=== PATIENT | male | born 1940 | race Caucasian/White ===

== ENCOUNTER 2018-04-18 08:57 | Inpatient (IN) | payer MEDICARE, OTHER ==
[~2018-04-18] VITALS: Ht 177.8 cm; Wt 84.8 kg
[~2018-04-18 08:57] MED LIST: COZAAR; CRESTOR; LEVSIN
[2018-04-18] MEDS ORDERED: FLOMAX0.4 MG PO (08:59)
[2018-04-18] MEDS ORDERED: LOPRESSOR25 PO (08:59)
[2018-04-18] MEDS ORDERED: NITROGLYCERIN0.4 MG SUBLING (09:00)
[2018-04-18] MEDS ORDERED: IMDUR 60 MG TAB60 M1 PO (09:00)
[2018-04-18 09:22] LABS: ABSOLUTE EOSINOPHILS 0.1 thou/uL (0.0-0.7); ABSOLUTE LYMPHOCYTES 2.7 thou/uL (0.8-5.3); ABSOLUTE MONOCYTES 0.6 thou/uL (0.0-1.2); ABSOLUTE NEUTROPHILS 5.7 thou/uL (1.6-8.1); BASOPHILS 0.4 %; EOSINOPHILS 1.2 %; HEMATOCRIT 36.4 % (42.0-52.0); HEMOGLOBIN 11.9 gm/dL (14.0-18.0); LYMPHOCYTES 29.3 %; MCH 31.2 pg (26.0-34.0); MCHC 32.8 g/dL (28.0-37.0); MONOCYTES 6.3 %; MPV 8.5 fl. (7.2-11.1); NUCLEATED RBCS 0 /100WBC; PLATELET COUNT* 220 thou/uL (150-400); POLYS 62.8 %; RBC 3.83 mil/uL (4.50-6.00); RDW-CV 15.5 % (10.5-14.5); WBC 9.1 thou/uL (4.0-11.0)
[2018-04-18 09:38] LABS: ANION GAP 6 mmol/L (7-16); BUN 13 mg/dL (7-18); CALCIUM 8.8 mg/dL (8.5-10.1); CHLORIDE 107 mmol/L (98-107); CO2 26 mmol/L (21-32); CREATININE 1.1 mg/dL (0.6-1.3); GLUCOSE 123 mg/dL (70-99); POTASSIUM 4.3 mmol/L (3.5-5.1); SODIUM 139 mmol/L (136-145)
[2018-04-18 09:39] LABS: APTT 31.6 Seconds (25.0-31.3); PROTIME 10.3 Seconds (9.20-11.50)
[2018-04-18 10:00] LABS: ALBUMIN 3.7 g/dL (3.4-5.0); ALKALINE PHOSPHATASE 69 U/L (46-116); CK-MB MASS 0.9 ng/mL (<0.5-3.6); NT-PRO BRAIN NAT PEPTIDE 2634 pg/mL (<300); SGOT 11 U/L (15-37); SGPT 13 U/L (30-65); TOTAL BILIRUBIN 1.1 mg/dL (<0.1-1.0); TOTAL PROTEIN 7.2 g/dL (6.4-8.2); TROPONIN-I LEVEL <0.06 ng/mL (<0.06)
[2018-04-18 10:59] LABS: URINE BILIRUBIN NEGATIVE (Negative); URINE BLOOD TRACE (Negative); URINE CLARITY SL CLOUDY; URINE COLOR YELLOW; URINE GLUCOSE-RANDOM NEGATIVE (Negative); URINE KETONES NEGATIVE (Negative); URINE LEUKOCYTES-REFLEX 2+ (Negative); URINE NITRITE-REFLEX NEGATIVE (Negative); URINE PROTEIN NEGATIVE (Negative); URINE UROBILINOGEN 0.2 E.U./dl (0.2-1.0)
[2018-04-18 11:19] LABS: CASTS None Seen /LPF (None Seen); CRYSTALS None Seen /LPF (None Seen); SQUAMOUS 4-10 Moderate /LPF (0-3); URINE WBC-REFLEX >25 Many /HPF (0-5)
[2018-04-18 11:20] LABS: BACTERIA-REFLEX >30 Many /HPF (None Seen); URINE RBC None Seen /HPF (0-2)
[2018-04-18 12:20] VITALS: BP 151/86
[2018-04-18 12:25] VITALS: BP 125/72
--- NOTE | 2018-04-18 14:01 | EKG ---
[place] [address] ELECTROCARDIOGRAM REPORT Name: GILDARDO FRANKEL Room: [address] ADM IN .R.#: [id number] Admission: 04/18/18 Attend Phys: Aida Camacho MD Discharge: Date of : 38 Report #: [id number] THIS REPORT FOR: //name// [facility] ED Test Date: 2018-04-18 Test Time: 09:00:32 Pat Name: GILDARDO JOSTIN Department: Room: [facility] Gender: M Tinner Helper: : 1940 Requested By: Zeke Ndiaye Order Number: [id number] MD: Bharat Grimaldo Measurements Intervals [place] Rate: 76 P: ND: QRS: 53 QRSD: 150 T: 225 QT: 429 QTc: 483 Interpretive Statements Afib/flut and V-paced complexes No further rhythm analysis attempted due to paced rhythm Compared to ECG 08/28/2009 07:48:04 Left bundle-branch block now present Sinus rhythm no longer present paced rhythm now noted Electronically Signed On 04-18-2018 14:01:06 CDT by Bharat Grimaldo [email or web address] <ELECTRONICALLY SIGNED> By: Bharat Grimaldo MD, [facility] 04/18/18 1401 9 09 Bharat Grimaldo MD, [facility] /EPI
[2018-04-18 16:00] VITALS: BP 160/93
[2018-04-18] MEDS ORDERED: RANEXA500 MG PO (17:19)
[2018-04-18] MEDS ORDERED: GLUCOTROL5 MG PO (17:20)
[2018-04-18] MEDS ORDERED: IMDUR 30 MG TAB30 M1 PO (17:22)
[2018-04-18] MEDS ORDERED: ELIQUIS5 MG PO (17:25)
[2018-04-18] MEDS ORDERED: GLUCOPHAGE850 MG PO (17:26)
[2018-04-18] MEDS ORDERED: ATORVASTATIN CA40 MG PO (17:26)
[2018-04-18 20:00] VITALS: BP 128/42
[2018-04-19] VITALS: BP 147/83
[2018-04-19 04:00] VITALS: BP 138/84
[2018-04-19 05:01] LABS: HEMATOCRIT 34.4 % (42.0-52.0); HEMOGLOBIN 11.5 gm/dL (14.0-18.0); MCH 31.4 pg (26.0-34.0); MCHC 33.4 g/dL (28.0-37.0); MCV 93.9 fL (80.0-100.0); MPV 9.1 fl. (7.2-11.1); RBC 3.66 mil/uL (4.50-6.00); RDW-CV 15.3 % (10.5-14.5); WBC 8.8 thou/uL (4.0-11.0)
[2018-04-19 06:01] LABS: CALCIUM 8.7 mg/dL (8.5-10.1); MAGNESIUM 1.6 mg/dL (1.8-2.4); PHOSPHORUS* 3.5 mg/dL (2.5-4.9); POTASSIUM 3.8 mmol/L (3.5-5.1)
[2018-04-19 07:49] VITALS: BP 135/67
[2018-04-19 12:46] VITALS: BP 127/71
[2018-04-19 20:13] VITALS: BP 113/68
[2018-04-20] VITALS (8 sets, daily range): BP systolic 96–159; BP diastolic 47–86
[2018-04-20 05:03] LABS: ABSOLUTE EOSINOPHILS 0.1 thou/uL (0.0-0.7); ABSOLUTE LYMPHOCYTES 1.9 thou/uL (0.8-5.3); ABSOLUTE MONOCYTES 0.5 thou/uL (0.0-1.2); BASOPHILS 0.5 %; EOSINOPHILS 1.2 %; HEMATOCRIT 34.3 % (42.0-52.0); HEMOGLOBIN 11.4 gm/dL (14.0-18.0); LYMPHOCYTES 25.2 %; MCH 31.4 pg (26.0-34.0); MCHC 33.3 g/dL (28.0-37.0); MCV 94.4 fL (80.0-100.0); MONOCYTES 7.1 %; MPV 8.7 fl. (7.2-11.1); NUCLEATED RBCS 0 /100WBC; PLATELET COUNT* 198 thou/uL (150-400); RBC 3.64 mil/uL (4.50-6.00); RDW-CV 15.1 % (10.5-14.5); WBC 7.6 thou/uL (4.0-11.0)
[2018-04-20 06:04] LABS: CALCIUM 8.5 mg/dL (8.5-10.1); CREATININE 1.1 mg/dL (0.6-1.3); POTASSIUM 4.7 mmol/L (3.5-5.1)
--- NOTE | 2018-04-20 19:29 | CON ---
[address] [address] CONSULTATION Name: GILDARDO FRANKEL Room: [address] IN .R.#: [id number] Admission: 04/18/18 Attend Phys: Aida Camacho MD Discharge: Date of : 38 Report #: [id number] THIS REPORT FOR: //name// CC: FAM unknown Aida Camacho [facility] Ten Huffman DO HISTORY OF PRESENT ILLNESS: The patient is a 77-year-old male who was admitted complaining of back pain for 2 weeks. While en route, the patient had had several short-term syncopal episodes with memory loss. During that time, the patient's vital signs were stable. [facility]. The patient had complained of abdominal pain. The CT scan showed descending colon diverticulitis with microperforation. The patient has been noted to be a very poor historian. The patient cannot provide any history. The notes were reviewed including the nursing notes. The patient was begun on Flexeril and also given a dose of fentanyl after he complained of back pain. The patient began having episodes of lethargy and was difficult to arouse at times. It was difficult to be sure if this was related to medication and a CT scan of the head and a Neurology consult was requested. PAST MEDICAL HISTORY: Diverticulitis, stroke, colon cancer, prostate cancer, subclavian steal syndrome. PAST SURGICAL HISTORY: Pacemaker placement, valve repair, cholecystectomy, right carotid endarterectomy. MEDICATIONS AT HOME: Include metoprolol 25 mg daily, tamsulosin 0.4 mg daily, nitroglycerin p.r.n., isosorbide 60 mg daily. ALLERGIES: SULFA. PHYSICAL EXAMINATION: VITAL SIGNS: Temperature is 36.8, pulse rate 70, respiratory rate 16, blood pressure 132/71, bedside pulse oximetry 99% on 2.5 liters oxygen. LABORATORY WORK: White blood cell count 7.6, hemoglobin 11.4, hematocrit 34.3, MCV 94.4, platelet count 198,000. Urinalysis 2+ leukocyte esterase, many bacteria. Chemistry: Sodium 141, potassium 4.7, chloride 107, carbon dioxide 25, BUN 13, creatinine 1.1, GFR 65, glucose 98. Vitamin B12 203. TSH is 6.079. IMAGING: CT scan of the head demonstrates atrophy and microvascular disease. NEUROLOGIC EXAMINATION: The patient unable to provide any history and was somewhat disoriented to place and time. Cranial nerves 2-12 [place] [address] CONSULTATION Name: ALEXANDRESHANNONABHILASHGILDARDO CHAVEZ Elva Room: [address] IN [facility]#: [id number] Admission: 04/18/18 Attend Phys: Aida Camacho MD Discharge: Date of : 39 Report #: [id number] intact. Motor exam demonstrated symmetrical strength in all 4 extremities with tone and bulk normal. Reflexes were symmetrical throughout. Coordination demonstrated no evidence of dysmetria. IMPRESSION: This patient most likely has an underlying dementia compounded by the urinary tract infection and perhaps medication as well. I had ordered a B12 and TSH earlier. The B12 level is low and the TSH is abnormal. I will now order a T4 to evaluate the patient for hypothyroidism. I would not give this patient any medication that could interfere with his cognitive function and this includes narcotics. I have discontinued fentanyl, cyclobenzaprine. I thank you for your kind referral of this patient. <ELECTRONICALLY SIGNED> By: Ally Carter DO 04/20/18 1929 1142 1805Ally Carter DO /nt
[2018-04-21 00:39] VITALS: BP 127/63
[2018-04-21 04:00] VITALS: BP 136/79
[2018-04-21 08:37] LABS: ABSOLUTE EOSINOPHILS 0.1 thou/uL (0.0-0.7); ABSOLUTE MONOCYTES 0.6 thou/uL (0.0-1.2); ABSOLUTE NEUTROPHILS 7.2 thou/uL (1.6-8.1); BASOPHILS 0.1 %; EOSINOPHILS 1.2 %; HEMATOCRIT 37.8 % (42.0-52.0); HEMOGLOBIN 12.4 gm/dL (14.0-18.0); LYMPHOCYTES 19.9 %; MCH 31.1 pg (26.0-34.0); MCHC 32.8 g/dL (28.0-37.0); MCV 94.9 fL (80.0-100.0); MONOCYTES 6.3 %; MPV 9.1 fl. (7.2-11.1); NUCLEATED RBCS 0 /100WBC; PLATELET COUNT* 218 thou/uL (150-400); POLYS 72.5 %; RBC 3.98 mil/uL (4.50-6.00); RDW-CV 14.9 % (10.5-14.5); WBC 9.9 thou/uL (4.0-11.0)
[2018-04-21 08:58] LABS: CALCIUM 8.7 mg/dL (8.5-10.1); POTASSIUM 4.6 mmol/L (3.5-5.1)
[2018-04-21 09:00] VITALS: BP 144/69
[2018-04-21 11:30] VITALS: BP 111/59
[2018-04-21 16:00] VITALS: BP 153/81
[2018-04-21 20:00] VITALS: BP 157/80
[2018-04-22] VITALS: BP 142/82
[2018-04-22 04:00] VITALS: BP 139/60
[2018-04-22 08:00] VITALS: BP 146/74
[2018-04-22 11:27] VITALS: BP 152/79
[2018-04-22 15:34] VITALS: BP 153/86
[2018-04-22 20:00] VITALS: BP 117/55
[2018-04-23] VITALS: BP 134/74
[2018-04-23 04:00] VITALS: BP 136/83
[2018-04-23 04:56] LABS: HEMATOCRIT 31.1 % (42.0-52.0); HEMOGLOBIN 10.6 gm/dL (14.0-18.0); MCH 31.8 pg (26.0-34.0); MCHC 34.1 g/dL (28.0-37.0); MCV 93.2 fL (80.0-100.0); MPV 9.3 fl. (7.2-11.1); RBC 3.34 mil/uL (4.50-6.00); RDW-CV 14.8 % (10.5-14.5); WBC 7.1 thou/uL (4.0-11.0)
[2018-04-23 05:10] LABS: ALBUMIN 2.8 g/dL (3.4-5.0); CALCIUM 8.3 mg/dL (8.5-10.1); CREATININE 0.9 mg/dL (0.6-1.3); MAGNESIUM 1.4 mg/dL (1.8-2.4); POTASSIUM 3.5 mmol/L (3.5-5.1); TOTAL PROTEIN 5.8 g/dL (6.4-8.2)
[2018-04-23 08:00] VITALS: BP 140/77
[2018-04-23 11:48] VITALS: BP 132/73
[2018-04-23 15:44] VITALS: BP 145/61
[2018-04-23 20:00] VITALS: BP 144/90
[2018-04-24] VITALS (15 sets, daily range): BP systolic 124–198; BP diastolic 75–108
[2018-04-24 08:18] LABS: HEMATOCRIT 31.7 % (42.0-52.0); HEMOGLOBIN 10.8 gm/dL (14.0-18.0); MCH 32.1 pg (26.0-34.0); MCHC 34.2 g/dL (28.0-37.0); MCV 93.7 fL (80.0-100.0); MPV 8.6 fl. (7.2-11.1); RBC 3.38 mil/uL (4.50-6.00); WBC 10.2 thou/uL (4.0-11.0)
[2018-04-24 08:24] LABS: CALCIUM 8.8 mg/dL (8.5-10.1); CREATININE 0.9 mg/dL (0.6-1.3); POTASSIUM 3.1 mmol/L (3.5-5.1)
[2018-04-24 08:28] LABS: APTT 40.8 Seconds (25.0-31.3); PROTIME 10.6 Seconds (9.20-11.50)
[2018-04-24 08:29] LABS: ALBUMIN 3.1 g/dL (3.4-5.0); TOTAL BILIRUBIN 0.8 mg/dL (<0.1-1.0); TOTAL PROTEIN 7.3 g/dL (6.4-8.2)
--- NOTE | 2018-04-24 15:03 | EKG ---
[place] [address] ELECTROCARDIOGRAM REPORT Name: GILDARDO FRANKEL Room: [address] ADM IN M.R.#: [id number] Admission: 04/18/18 Attend Phys: Aida Camacho MD Discharge: Date of : 38 Report #: [id number] THIS REPORT FOR: //name// [facility] Test Date: 2018-04-24 Test Time: 08:03:54 Pat Name: GILDARDO JOSTIN Department: Room: [facility] Gender: M Alteration Inspector: : 1940 Requested By: Artem Street Order Number: [id number] Lanette MD: Joey Burnett Measurements Intervals [place] Rate: 82 P: RI: QRS: 11 QRSD: 113 T: -7 QT: 497 QTc: 581 Interpretive Statements Afib/flut and V-paced complexes No further rhythm analysis attempted due to paced rhythm Anterolateral infarct, age indeterminate Prolonged QT interval Compared to ECG 04/18/2018 09:00:32 Myocardial infarct finding now present Prolonged QT interval now present Electronically Signed On 04-24-2018 15:03:11 CDT by Joey Burnett [email or web address] <ELECTRONICALLY SIGNED> By: Joey Burnett MD, FACC 04/24/18 1503 2 2 Joey Burnett MD, FAC /EPI
[2018-04-25] VITALS (12 sets, daily range): BP systolic 132–154; BP diastolic 71–86
--- NOTE | 2018-04-25 11:22 | CON ---
[address] [address] CONSULTATION Name: GILDARDO FRANKEL Room: [address] IN .R.#: [id number] Admission: 04/18/18 Attend Phys: Aida Camacho MD Discharge: Date of : 38 Report #: [id number] THIS REPORT FOR: //name// CC: FAM unknown Aida Camacho [facility] DATE OF SERVICE: 04/22/2018 HISTORY OF PRESENT ILLNESS: This is a pleasant 77-year-old gentleman with past medical history significant for coronary artery disease, hypertension, diabetes, prostate cancer and prior episode of diverticulitis was presenting with back pain. The patient reports that he has had back pain for a month and this had gotten progressively worse over the last few days prompting him to present to the hospital. The patient reports the pain is located deep inside the lower abdomen radiating to the back. He denies any fevers or chills. He denies any upper abdominal pain, nausea, vomiting, weight loss. The patient does report that he has intermittent hematochezia and has had this for several years. The patient reports his last colonoscopy was 5 years back and he was diagnosed with polyps and diverticulosis. PAST MEDICAL HISTORY: As mentioned above, the patient has a past medical history of hypertension, atrial fibrillation, diabetes and prostate cancer. PAST SURGICAL HISTORY: The patient reports having surgery done for this prostate cancer and had a cholecystectomy in the remote past. SOCIAL HISTORY: The patient reports smoking cigars occasionally, but does not smoke cigarettes. He denies alcohol or recreational drug use. FAMILY HISTORY: There is no family history of colorectal cancer. REVIEW OF SYSTEMS: A comprehensive 10-point review of systems is negative except what was mentioned here. PHYSICAL EXAMINATION: VITAL SIGNS: Temperature 36.2, pulse rate 70, respirations 18, blood pressure 152/79. GENERAL: The patient is alert, awake, oriented x 3. HEENT: Mucous membranes are moist. NECK: There is no congestion. LUNGS: Clear to auscultation bilaterally. CARDIOVASCULAR: Irregularly irregular. ABDOMEN: Soft. There is tenderness to deep palpation in the left lower quadrant. There is no guarding or rigidity. EXTREMITIES: Warm and well perfused. Bilateral pedal [place] [address] CONSULTATION Name: GILDARDO FRANKEL Room: [address]#: [id number] Admission: 04/18/18 Attend Phys: Aida Camacho MD Discharge: Date of : 38 Report #: [id number] NEUROLOGIC: There are no focal neurological deficits. SKIN: Warm and dry. LABORATORY DATA: Hemoglobin 12.4, hematocrit 37.8, platelet count 218. WBC count 9.9. Sodium 141, potassium 4.6, chloride 106, bicarbonate 25, BUN 11, creatinine 1, total bilirubin 1.1, AST is 11, ALT is 13, alkaline phosphatase 69. Abdomen and pelvis CT, mild diverticulitis involving descending colon. No pericolonic abscess identified. Progression of rectal wall thickening and infiltration of the perirectal fat compatible with developing rectal proctitis. No perirectal abscess identified. ASSESSMENT AND PLAN: This is a very pleasant 77-year-old male presenting with recurrent acute diverticulitis with possible microperforation. The patient has a past medical history significant for hypertension, atrial fibrillation, on chronic anticoagulation, prostate cancer and diabetes. 1. Diverticulitis with microperforation. 2. Proctitis. We would continue to recommend conservative management at this time including IV antibiotics. Can advance the patient's diet as tolerated. Endoscopy would not be recommended in the setting of active diverticulitis with possible microperforation due to the risk of worsening the disease. We would, however, recommend a colonoscopy in 4-6 weeks' time to be done as outpatient. <ELECTRONICALLY SIGNED> By: Andrae Gates MD 04/25/18 1122 1146 0720Andrae Gates MD /nt
--- NOTE | 2018-04-25 14:32 | EEG ---
[address] [address] EEG STUDY REPORT Name: GILDARDO FRANKEL Room: [address] IN ..#: [id number] Admission: 04/18/18 Attend Phys: Aida Camacho MD Discharge: Date of : 38 Report #: [id number] THIS REPORT FOR: //name// CC: FAM unknown Aida Camacho [facility] The patient is a 77-year-old male who had an episode of unresponsiveness. An EEG is requested for further evaluation. DESCRIPTION: The awake record consists of symmetric moderate amplitude 6.5-7 Hz posterior dominant rhythm that attenuates with eye opening. EMG artifact occurs throughout the recording. Stage I sleep is characterized by attenuation of the background record. Hyperventilation is not performed. Photic stimulation is nonactivating. No focal abnormalities or epileptiform discharges are noted. IMPRESSION: This is an abnormal adult awake record consistent with mild diffuse cerebral dysfunction. This can be seen in drowsiness or medication effect. <ELECTRONICALLY SIGNED> By: Ally Catrer DO 04/25/18 1432 1049 1141Redgardo Carter DO /nt
--- NOTE | 2018-04-25 17:49 | 2DMMODE ---
[place] [address] 2 D/M-MODE ECHOCARDIOGRAM Name: GILDARDO FRANKEL Room: [facility] [place] [facility]#: [id number] Admission: 04/18/18 Attend Phys: Aida Camacho MD Discharge: Date of : 38 Date of Service: 04/25/18 1748 Report #: [id number] THIS REPORT FOR: //name// APPROVED REPORT Study performed: 04/25/2018 14:27:53 EXAM: Comprehensive 2D, Doppler, and color-flow Echocardiogram Patient Location: In-Patient Room #: 002 Status: routine BSA: 2.05 HR: 70 bpm BP: 137/76 mmHg Rhythm: NSR Other Information Study Quality: Good Indications Dyspnea Syncope 2D Dimensions IVSd: 15.09 (7-11mm) LVOT Diam: 20.67 (18-24mm) LVDd: 57.67 mm PWd: 10.01 (7-11mm) Ascending Ao: 36.37 (22-36mm) LVDs: 49.30 (25-40mm) Aortic Root: 31.82 mm Volumes Left Atrial Volume (Systole) LA ESV Index: 46.10 mL/m2 Aortic Valve AoV Peak Chao.: 1.08 m/s AO Peak Gr.: 4.65 mmHg LVOT Max P.78 mmHg AO Mean Gr.: 2.75 mmHg LVOT Mean P.82 mmHg LVOT Max V: 0.67 m/s AO V2 VTI: 20.51 cm LVOT Mean V: 0.41 m/s DOROTHY (VTI): 2.18 cm2 LVOT V1 VTI: 13.34 cm Mitral Valve E/A Ratio: 1.33 MV Decel. Time: 102.87 [place] [address] 2 D/M-MODE ECHOCARDIOGRAM Name: GILDARDO FRANKEL Room: [address] IN ..#: [id number] Admission: 04/18/18 Attend Phys: Aida Camacho MD Discharge: Date of : 38 Date of Service: 04/25/18 1748 Report #: [id number] MV E Max Chao.: 1.03 m/s MV PHT: 29.83 ms MVA (PHT): 7.37 cm2 TDI E/Lateral E': 9.36 Lateral E' Chao.: 0.11 m/s Pulmonary Valve PV Peak Chao.: 0.81 m/s PV Peak Gr.: 2.62 mmHg Tricuspid Valve RAP Estimate: 5.00 mmHg TR Peak Gr.: 41.54 mmHg RVSP: 46.00 mmHg PA Pressure: 46.00 mmHg Left Ventricle Left ventricle is mildly dilated. Regional wall motion abnormalities are noted with akinesis of a portion of the inferior wall and remaining segments being hypokinetic. There is normal left ventricular wall thickness. Left ventricular systolic function is moderate to severely decreased. LVEF is 30%. The left ventricular diastolic function is normal. Right Ventricle The right ventricle is normal size. The right ventricular systolic function is normal. Pacemaker lead is present in the right ventricle. Atria Left atrium is moderately dilated. The right atrium size is normal. Aortic Valve Mild aortic valve sclerosis. No aortic regurgitation is present. There is no aortic valvular stenosis. Mitral Valve The mitral valve is normal in structure. Mild to moderate mitral regurgitation. No evidence of mitral valve stenosis. Tricuspid Valve The tricuspid valve is normal in structure. Mild tricuspid regurgitation. Moderate pulmonary hypertension. Pulmonic Valve The pulmonary valve is normal in structure. There [place] [address] 2 D/M-MODE ECHOCARDIOGRAM Name: GILDARDO FRAKNEL Room: [address] IN [facility]#: [id number] Admission: 04/18/18 Attend Phys: Aida Camacho MD Discharge: Date of : 38 Date of Service: 04/25/18 1748 Report #: [id number] valvular regurgitation. Great Vessels The aortic root is normal in size. IVC is normal in size and collapses >50% with inspiration. Pericardium There is no pericardial effusion. <Conclusion> Left ventricle is mildly dilated. Left ventricular systolic function is moderate to severely decreased. LVEF is 30%. The right ventricle is normal size. Left atrium is moderately dilated. Mild aortic valve sclerosis. No aortic regurgitation is present. There is no aortic valvular stenosis. The mitral valve is normal in structure. Mild to moderate mitral regurgitation. The tricuspid valve is normal in structure. Mild tricuspid regurgitation. Moderate pulmonary hypertension. IVC is normal in size and collapses >50% with inspiration. There is no pericardial effusion. Regional wall motion abnormalities are noted with akinesis of a portion of the inferior wall and remaining segments being hypokinetic. Pacemaker lead is present in the right ventricle. <ELECTRONICALLY SIGNED> By: Dedrick Downs MD, FACC 04/25/181747 47 47 Dedrick Downs MD, FACC /INF
[2018-04-26] VITALS (15 sets, daily range): BP systolic 119–143; BP diastolic 57–98
[2018-04-27] VITALS: BP 144/84
[2018-04-27 04:00] VITALS: BP 141/75
[2018-04-27 09:00] VITALS: BP 135/80
[2018-04-27 12:00] VITALS: BP 146/66
[2018-04-27 16:00] VITALS: BP 142/76
[2018-04-27 20:00] VITALS: BP 151/75
[2018-04-28] VITALS: BP 116/59
[2018-04-28 04:00] VITALS: BP 156/85
[2018-04-28 11:07] LABS: URINE BILIRUBIN NEGATIVE (Negative); URINE BLOOD 1+ (Negative); URINE CLARITY CLEAR; URINE COLOR YELLOW; URINE GLUCOSE-RANDOM TRACE (Negative); URINE LEUKOCYTES NEGATIVE (Negative); URINE NITRITE NEGATIVE (Negative); URINE PROTEIN TRACE (Negative); URINE SPECIFIC GRAVITY 1.025 (1.005-1.030); URINE UROBILINOGEN 0.2 E.U./dl (0.2-1.0)
[2018-04-28 11:19] LABS: ACETEST (KETONE CONFIRMATORY) Small (Negative); URINE KETONES 3+ (Negative)
[2018-04-28 11:22] LABS: BACTERIA 1-9 Few /HPF (None Seen); CASTS None Seen /LPF (None Seen); SQUAMOUS NONE SEEN /LPF (0-3); URINE RBC 3-10 Few /HPF (0-2); URINE WBC 0-5 Rare /HPF (0-5)
[2018-04-28 11:23] LABS: CRYSTALS None Seen /LPF (None Seen)
[2018-04-28 11:48] VITALS: BP 159/79
[2018-04-28] MEDS ORDERED: CIPRO500 MG PO (14:20)
[2018-04-28] MEDS ORDERED: FLAGYL500 MG PO (14:21)
[2018-04-28] MEDS ORDERED: LOPRESSOR25 PO (14:21)
[2018-04-28] MEDS ORDERED: HYDROCODONE-AP1 EAC6 PO (14:22)
[2018-04-28] MEDS ORDERED: SENNA S TABLET1 EACH PO (14:22)
[2018-04-28] MEDS ORDERED: LIDOPATCH1 EACH TOP (14:23)
[2018-04-28] MEDS ORDERED: CYMBALTA30 MG PO (14:23)
[2018-04-28] MEDS ORDERED: NYSTATIN15 G3 TOP (14:23)
[2018-04-28 15:34] VITALS: BP 159/79
[2018-04-28 15:44] VITALS: BP 168/125
== END 2018-04-28 17:39 | DRG 391 ==
LOC: M.ERS 08:57 → M.2W 11:30 → M.TBA-ER 11:30 → M.2W 12:21 → M.ICU 04-24 08:13 → M.2W 04-26 16:12
PROVIDERS: Family Medicine; Surgery; ADMIT Family Medicine
DX: K57.20 Diverticulitis of large intestine with perforation and abscess without bleeding (principal); J96.00 Acute respiratory failure, unspecified whether with hypoxia or hypercapnia; N39.0 Urinary tract infection, site not specified; G93.40 Encephalopathy, unspecified; I50.20 Unspecified systolic (congestive) heart failure; I69.354 Hemiplegia and hemiparesis following cerebral infarction affecting left non-dominant side; I13.0 Hypertensive heart and chronic kidney disease with heart failure and stage 1 through stage 4 chronic kidney disease, or unspecified chronic kidney disease; E03.9 Hypothyroidism, unspecified; I25.10 Atherosclerotic heart disease of native coronary artery without angina pectoris; E11.9 Type 2 diabetes mellitus without complications; I48.91 Unspecified atrial fibrillation; K62.89 Other specified diseases of anus and rectum; G89.29 Other chronic pain; M54.9 Dorsalgia, unspecified; E53.8 Deficiency of other specified B group vitamins; L89.91 Pressure ulcer of unspecified site, stage 1; R33.9 Retention of urine, unspecified; I25.5 Ischemic cardiomyopathy; T50.905A Adverse effect of unspecified drugs, medicaments and biological substances, initial encounter; R41.0 Disorientation, unspecified; E83.42 Hypomagnesemia; E87.6 Hypokalemia; I65.23 Occlusion and stenosis of bilateral carotid arteries; N35.919 Unspecified urethral stricture, male, unspecified site; Z95.0 Presence of cardiac pacemaker; Z90.49 Acquired absence of other specified parts of digestive tract; Z85.038 Personal history of other malignant neoplasm of large intestine; Z85.46 Personal history of malignant neoplasm of prostate; Z88.2 Allergy status to sulfonamides; Z79.01 Long term (current) use of anticoagulants; Z87.891 Personal history of nicotine dependence; Z95.5 Presence of coronary angioplasty implant and graft; Z92.3 Personal history of irradiation; Z86.718 Personal history of other venous thrombosis and embolism; N18.3 Chronic kidney disease, stage 3 (moderate)